=== PATIENT | male | born 1955 | race Asian ===

== ENCOUNTER 2020-10-26 20:11 | Emergency (ER) | payer OTHER ==
[~2020-10-26] VITALS: Ht 162.6 cm; Wt 60.8 kg
[2020-10-26] MEDS ORDERED: AMOXIL/CLAVULANATE 875/125 MG 1 TAB PO ONE (20:40)
[2020-10-26 21:22] VITALS: BP 143/85
--- NOTE | 2020-10-26 21:28 | NUR ---
PT TAKEN TO [facility] WITH STEADY GAIT.
--- NOTE | 2020-10-26 21:30 | NUR ---
65 Y/O MALE BIB [facility] BITE TO L HAND THIS EVENING. HE REPORTS HAVING MINOR DISCOMFORT TO L HAND 7/10 "ACHING" NON-RADIATING PAIN. PT ABLE TO PERFORM FULL ROM OF THE EXTREMITY. RADIAL PULSES +2 BILATERALLY EQUAL. GRIB STRENGTH WAS EQUAL OM BOTH EXTREMITIES. PMHX: UNABLE TO OBTAIN AT THIS TIME NKA
--- NOTE | 2020-10-26 21:51 | NUR ---
PT EXPLAINED RISK AND BENEFITS OF TDAP TO PT. PT VERBALIZED CONSENT AND SIGNED CONSENT FOR VACCINATION. TDAP GIVEN.
--- NOTE | 2020-10-26 21:58 | NUR ---
PT TAKEN TO X-RAY VIA W/C.
--- NOTE | 2020-10-26 22:04 | NUR ---
PT RETURNED FROM X-RAY.
[2020-10-26] MEDS ORDERED: LIDOCAINE/EPI 1% 1:100000 20 ML VIAL INJ ONE (23:27)
--- NOTE | 2020-10-27 00:10 | NUR ---
GERARDO FOLEY AT [facility] PERFORMING PROCEDURE FOR PT.
[2020-10-27 00:14] VITALS: BP 143/85
--- NOTE | 2020-10-27 00:14 | NUR ---
Patient does not wish to proceed with medical care recommended by TOI PLATT. Patient given information related to possible complications, up to and including , which could occur as a result of leaving hospital at this time. Patient was discharged by Dr. Platt. Patient verbalizes understanding of risks involved leaving against medical advice. Patient has signed AMA form.
--- NOTE | 2020-10-27 02:47 | NUR ---
FAX ANIMAL REPORT BITE TO ANIMAL CONTROL .
== END 2020-10-27 00:14 | disposition left against medical advice (07) ==
LOC: MED 20:11
DX: M79.642 Pain in left hand (principal); E11.65 Type 2 diabetes mellitus with hyperglycemia; W54.0XXA Bitten by dog, initial encounter; Y93.89 Activity, other specified; Y92.89 Other specified places as the place of occurrence of the external cause; Y99.8 Other external cause status
CPT/HCPCS: 73130; 90471; 90715; 99283; J2001